=== PATIENT | male | born 1985 | race African-American/Black ===

== ENCOUNTER 2016-05-01 16:21 | Emergency (ER) ==
[2016-05-01 16:27] VITALS: BP 144/84; TEMP 99; BMI 22.1
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
== END 2016-05-01 17:09 | disposition home or self-care (01) ==
LOC: ED 16:21
DX: G89.18 Other acute postprocedural pain (principal); F17.210 Nicotine dependence, cigarettes, uncomplicated; R20.0 Anesthesia of skin
CPT/HCPCS: 99282